=== PATIENT | male | born 1995 | race African-American/Black ===

== ENCOUNTER 2019-12-31 18:18 | Emergency (ER) | payer MEDICAID ==
[~2019-12-31] VITALS: Ht 172.7 cm; Wt 54.4 kg
[~2019-12-31 18:18] MED LIST: ALBUTEROL2.5 MG/3 M INH; AMOXICILLIN500 MG ORAL; IBUPROFEN600 MG ORAL; NKM
[2019-12-31 18:26] VITALS: BP 120/75
--- NOTE | 2019-12-31 18:30 | NUR ---
ED Nurse Note: patient walked into ED from home c/o bilateral earache and headache for 6 days. patient denies any fever. patient is a/o x4 ambulatory, breathing unlabored and even, speaking in full sentences.
--- NOTE | 2019-12-31 18:51 | Emergency Room Report ---
History of Present Illness General Chief Complaint: Earache Source: Patient Present Illness HPI 24-year-old male with no significant past medical history here complaining right -sided ear pain, congestion, sore throat. Patient reports that he has been congested for the past several weeks and started having right ear pain starting yesterday. Rates the pain 10 out of 10. No drainage noted. Also complains of posterior neck pain however has full range of motion. No neck stiffness noted. Patient denies any headache, fever, photophobia. Patient vital vital signs are within normal limits. Denies chest pain, shortness of breath, and other associate symptoms. Denies nausea vomiting, vertigo and dizziness. Has not taken medication other than Benadryl for symptom relief. Denies any drug use and tobacco smoke. Allergies: Coded Allergies: MORPHINE (Verified Allergy, Mild, Rash, 01/14/14) Patient History Past Medical History: see triage record Past Surgical History: none Pertinent Family History: none Immunizations: UTD Reviewed Nursing Documentation: PMH: Agreed; PSxH: Agreed Nursing Documentation-PMH Past Medical History: No History, Except For Hx Asthma: Yes History Of Psychiatric Problem: Yes Review of Systems All Other Systems: negative except mentioned in HPI Physical Exam Vital Signs Date Time Temp Pulse Resp B/P (MAP) Pulse Ox O2 Delivery O2 Flow Rate FiO2 12/31/19 18:26 98.1 55 18 120/75 (90) 99 Room Air Sp02 EP Interpretation: reviewed, normal General Appearance: no apparent distress, alert, GCS 15, non-toxic Head: normocephalic, atraumatic Eyes: bilateral eye normal inspection, bilateral eye PERRL ENT: uvula midline, nasal congestion, other - Right-sided maxillary sinus tender to palpation, erythema of the right ear canal right TM is irritated however nonbulging Neck: full range of motion, supple, no meningismus, other - Right-sided and anterior cervical lymphadenopathy Respiratory: chest non-tender, lungs clear, normal breath sounds, no rhonchi, no retraction, speaking full sentences Cardiovascular #1: regular rate, rhythm, no edema, no JVD, no murmur Cardiovascular #2: 2+ carotid (R), 2+ carotid (L) Gastrointestinal: normal bowel sounds, non tender, soft, non-distended, no guarding, no rebound Genitourinary: no CVA tenderness Musculoskeletal: back normal, digits/nails normal Neurologic: alert, motor strength/tone normal, oriented x3, sensory intact, responsive, speech normal Psychiatric: normal inspection, judgement/insight normal Skin: no rash Lymphatic: adenopathy - Anterior cervical Medical Decision Making Diagnostic Impression: Primary Impression: Sinus infection Additional Impressions: Otitis media Cervical lymphadenopathy ER Course 24-year-old male with no significant past medical history here complaining right -sided ear pain, congestion, sore throat. Patient reports that he has been congested for the past several weeks and started having right ear pain starting yesterday. Rates the pain 10 out of 10. No drainage noted. Also complains of posterior neck pain however has full range of motion. No neck stiffness noted. Patient denies any headache, fever, photophobia. Patient vital vital signs are within normal limits. Denies chest pain, shortness of breath, and other associate symptoms. Denies nausea vomiting, vertigo and dizziness. Has not taken medication other than Benadryl for symptom relief. Denies any drug use and tobacco smoke. Ddx considered but are not limited to: strep pharyngitis, URI, tonsillitis, peritonsillar abscess, influneza, otitis media, otitis externa, sinus infection , meningitis Vital signs: are WNL, pt. is afebrile H&PE are most consistent with:sinus infection leading to otitis media, cervical lymphadenopathy ORDERS: Augmentin, Claritin-D, guaifenesin, Robaxin, Motrin ED INTERVENTIONS: None required at this time. DISCHARGE: At this time pt. is stable for d/c to home. Will provide printed patient care instructions, and any necessary prescriptions. Care plan and follow up instructions have been discussed with the patient prior to discharge. At this time I do not see any signs of meningismus however advised patient return to emergency room if headache, dizziness, photophobia, neck stiffness. Also patient has been experiencing this neck pain x2 days. Has full range of motion. Is afebrile. Follow-up with ENT. Last Vital Signs Date Time Temp Pulse Resp B/P (MAP) Pulse Ox O2 Delivery O2 Flow Rate FiO2 20 18:26 98.1 55 18 120/75 99 Room Air Disposition: HOME, SELF-CARE Condition: Stable Scripts Ibuprofen* (MOTRIN*) 600 Mg Tablet 600 MG ORAL THREE TIMES A DAY, #30 TAB 0 Refills Prov: Jesus Marcum 12/31/19 Methocarbamol* (ROBAXIN-500*) 500 Mg Tablet 500 MG ORAL TID PRN for For Pain, #15 TAB 0 Refills Prov: Jesus Marcum 12/31/19 Guaifenesin* (GUAIFENESIN*) 100 Mg/5 Ml Liquid 5 ML ORAL Q8H, #120 ML 0 Refills Prov: Jesus Marcum 12/31/19 Loratadine/Pseudoephedrine (CLARITIN-D 12 HOUR TABLET) 1 Each Tab.er.12h 1 TAB ORAL EVERY 12 HOURS, #20 TAB Prov: Jesus Marcum 12/31/19 Amoxicillin/Potassium Clav 875-125* (AUGMENTIN 875-125 TABLET*) 1 Each Tablet 1 TAB ORAL TWICE A DAY for 10 Days, #20 TAB Prov: Jesus Marcum 12/31/19 Patient Instructions: Lymphadenopathy, Otitis Media, Adult, [id number] Additional Instructions: Take medication as directed, follow-up with your primary care provider, follow- up with ear nose throat doctor, if worsening symptoms, fever, headache, photophobia, blurry vision return to the emergency room. Jesus Marcum Dec 31, 2019 18:51
[2019-12-31] MEDS ORDERED: GUAIFENESI100 MG/5 M ORAL (18:52)
[2019-12-31] MEDS ORDERED: CLARITIN-D 121 EAC1 ORAL (18:52)
[2019-12-31] MEDS ORDERED: IBUPROFEN600 MG ORAL (18:52)
[2019-12-31] MEDS ORDERED: AUGMENTIN 875-1 EAC1 ORAL (18:52)
[2019-12-31] MEDS ORDERED: ROBAXIN-500MG ORAL (18:52)
[2019-12-31 18:55] VITALS: BP 120/75
--- NOTE | 2019-12-31 19:00 | NUR ---
ER DISCHARGE NOTE: Patient is cleared to be discharged per DAIA MICHAUD, pt is aox4, on room air, with stable vital signs. pt was given dc and prescription instructions, pt was able to verbalize understanding, pt id band removed without complications. pt is able to ambulate with steady gait with the mother . pt took all belongings.
== END 2019-12-31 19:00 | disposition home or self-care (01) ==
LOC: EMR 19:00
DX: J32.9 Chronic sinusitis, unspecified (principal); H66.91 Otitis media, unspecified, right ear; R59.0 Localized enlarged lymph nodes; J45.909 Unspecified asthma, uncomplicated; Z88.5 Allergy status to narcotic agent
CPT/HCPCS: 99282

== ENCOUNTER 2020-07-14 07:39 | Emergency (ER) | payer MEDICAID ==
[~2020-07-14] VITALS: Ht 172.7 cm; Wt 54.4 kg
[~2020-07-14 07:39] MED LIST changes: +AUGMENTIN 875-1 EAC1 ORAL; +CLARITIN-D 121 EAC1 ORAL; +GUAIFENESI100 MG/5 M ORAL; +ROBAXIN-500MG ORAL
[2020-07-14 07:42] VITALS: BP 137/95
[2020-07-14] MEDS ORDERED: Cyclobenzaprine 10mg Tab ORAL ONE (07:45)
[2020-07-14] MEDS ORDERED: Ketorolac 60mg Inj IM ONE ×2 (07:45→07:57)
[2020-07-14] MEDS ORDERED: Cyclobenzaprine 10mg Tab ONE (07:57)
--- NOTE | 2020-07-14 08:02 | Emergency Room Report ---
History of Present Illness General Chief Complaint: Neck Pain Source: Patient, EMS Present Illness HPI This patient states that around 1 AM this morning he was sitting and playing video games and when he went to stand up he felt a pull in the left side of his neck. He states that since that time he has had pain in the left side of his neck and left upper back. The pain is worse with movement. He denies recent illness. He denies fever or chills. He denies nausea or vomiting. He denies trauma. He denies weakness. He denies tingling or numbness. He denies headache. He denies blurry vision. He has no other complaints. 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 Patient History Past Medical History: see triage record, asthma Social History: Denies: smoking, alcohol use, drug use Reviewed Nursing Documentation: PMH: Agreed; PSxH: Agreed Nursing Documentation-PMH Past Medical History: No Stated History Hx Asthma: Yes History Of Psychiatric Problem: Yes - PTSD Review of Systems All Other Systems: negative except mentioned in HPI Physical Exam Vital Signs Date Time Temp Pulse Resp B/P (MAP) Pulse Ox O2 Delivery O2 Flow Rate FiO2 07/14/20 07:34 97.9 66 18 140/98 (112) 99 Room Air Sp02 EP Interpretation: reviewed, normal General Appearance: no apparent distress, alert, GCS 15, non-toxic Head: normocephalic, atraumatic Eyes: bilateral eye normal inspection, bilateral eye PERRL ENT: hearing grossly normal, no angioedema, normal voice Neck: normal inspection, full range of motion, supple, supple/symm/no masses, tender lateral - TTP along the L. trapezius. +exquisite tenderness. Respiratory: no respiratory distress, no retraction, no accessory muscle use, speaking full sentences Rectal: deferred Musculoskeletal: back normal, normal range of motion, gait/station normal, tender - TTP along the L. trapezius m. Neurologic: alert, motor strength/tone normal, oriented x3, sensory intact, responsive, speech normal Psychiatric: judgement/insight normal, memory normal, mood/affect normal, no suicidal/homicidal ideation Skin: no rash, normal color Medical Decision Making Diagnostic Impression: Primary Impression: Trapezius muscle spasm ER Course This patient has a clinical presentation consistent with trapezius muscle strain/spasm. C-spine xray showed no abnl. The patient has pain with range of motion and has tenderness to palpation along the muscle. There is no evidence of compartment syndrome. There is no neurologic deficit. The patient was instructed on supportive home measures. No emergency medical condition was identified. The patient was given return precautions and followup instructions. Other X-Ray Diagnostic Results Other X-Ray Diagnostic Results : X-Ray ordered: C-sppine # of Views/Limited Vs Complete: Complete Indication: Pain EP Interpretation: Yes Interpretation: no dislocation, no fractures Impression: No acute disease Electronically Signed by: Luana Almonte DO Last Vital Signs Date Time Temp Pulse Resp B/P (MAP) Pulse Ox O2 Delivery O2 Flow Rate FiO2 07/14/20 07:42 97.8 93 18 137/95 99 Room Air Status: improved Disposition: HOME, SELF-CARE Condition: Improved Scripts Cyclobenzaprine Hcl* (FLEXERIL*) 10 Mg Tablet 10 MG ORAL TID PRN for Muscle Spasm, #10 TAB Prov: Luana Almonte DO 07/14/20 Ibuprofen* (MOTRIN*) 600 Mg Tablet 600 MG ORAL THREE TIMES A DAY, #30 TAB Prov: Luana Almonte DO 07/14/20 Luana Almonte DO Jul 14, 2020 08:02
[2020-07-14] MEDS ORDERED: CYCLOBENZAPRINE10 MG ORAL (08:28)
[2020-07-14] MEDS ORDERED: IBUPROFEN600 M1 ORAL (08:28)
[2020-07-14 09:24] VITALS: BP 127/82
--- NOTE | 2020-07-14 15:08 | Diagnostic Imaging Report ---
Indication: Neck pain Technique: 4 views of the cervical spine Comparison: None Findings: There is straightening of the cervical lordosis. No evidence of spondylolisthesis. Vertebral body heights are maintained; there is no evidence of compression fracture. No acute cervical spine fracture is appreciated. No evidence of dens fracture on open mouth views. Anterior and lateral atlantodental intervals maintained. Imaged lung apices are grossly clear. Airway is patent. Epiglottis is normal in appearance. There is no radiopaque foreign body. IMPRESSION: No radiographically appreciable acute cervical spine fracture. Nonspecific straightening of the cervical lordosis, without evidence of spondylolisthesis.
== END 2020-07-14 09:22 | disposition home or self-care (01) ==
LOC: EDBD 07:39 → EMR 07:56
DX: M62.838 Other muscle spasm (principal); Z88.6 Allergy status to analgesic agent
CPT/HCPCS: 72040; 96372; Z7502; 99283